=== PATIENT | male | born 1990 | race Caucasian/White ===

== ENCOUNTER → 2016-11-09 | Day surgery (SDC) | payer OTHER ==
[~2016-11-09] VITALS: Ht 185.4 cm; Wt 104.3 kg
[~2016-11-09] MED LIST: ACETAMINOPHEN 500 MG TAB PO PRN; ASPirin 81 mg TAB PO ONE; ASPirin 81 mg TAB PO SCH; ATORVASTATIN 20 MG TAB PO SCH; HYDROcodone-ACET 5/325MG TAB PO PRN; LIDOCAINE 2%HCL (LOCAL ANESTH.) INJ 20ML MDV ONE; LORazepam 0.5 MG TAB PO PRN; METOPROLOL TARTRATE 25 MG TAB PO SCH; MIDAZOLAM HCL 1MG/1ML-2 ML VIAL ONE; MORPHINE SULF INJ 2 MG/ML SYRINGE 1ML IV PRN; NITROGLYCERIN 0.2MG/HR TOPICAL PATCH TD SCH; NITROGLYCERIN 0.4 MG SL TAB SL PRN; PROMETHAZINE HCL 25 MG/ML 1ML IV PRN; SODIUM CHLORIDE 0.9% 1,000 ML IV SCH; TEMAZEPAM 15 MG CAP PO PRN; fentaNYL CITRATE 100 MCG/2 ML VL ONE
[2016-11-09 09:35] VITALS: BP 150/79
[2016-11-09 09:59] LABS: Basophils # (auto) 0 uL; Basophils % (auto) 0.3 % (0.0-2.0); CONDITION Y; Eosinophils # (auto) 0.1 uL; Eosinophils % (auto) 1.9 % (0.0-7.0); Hematocrit 49.8 % (41.0-53.0); Hemoglobin 16.8 g/dL (13.5-17.5); Lymphocytes # (auto) 2.1 uL; Lymphocytes % (auto) 36.1 % (10.0-50.0); Mean Corpuscular Hemoglobin 30.6 pg (28.0-32.0); Mean Corpuscular Hgb Conc. 33.8 g/dL (32.0-36.0); Mean Corpuscular Volume 90.6 fL (80.0-100.0); Mean Platelet Volume 8.1 fL (7.4-10.4); Monocytes # (auto) 0.5 uL; Neutrophils # (auto) 3.1 uL; Neutrophils % (auto) 53.7 % (37.0-80.0); Platelet Count (auto) 292 10^3/uL (140-450); Red Cell Distribution Width 13.6 % (11.6-16.0); White Blood Cell 5.7 10^3/uL (4.4-10.8)
[2016-11-09 10:26] LABS: Albumin 4.6 g/dL (3.4-5.0); Alkaline Phosphatase 79 U/L (45-117); Anion Gap 7 (5-15); Aspartate Aminotransferase 22 U/L (15-37); BUN/Creatinine Ratio 13.7; Bilirubin, Total 0.8 mg/dL (0.2-1.0); Blood Urea Nitrogen 17 mg/dL (7-18); Calcium 9.2 mg/dL (8.5-10.1); Carbon Dioxide 30 mmol/L (21-32); Chloride 101 mmol/L (98-107); GFR African American 89 mL/min; GFR Non-African American 74 mL/min; Glucose 95 mg/dL (74-106); Sodium 138 mmol/L (136-145); Total Protein 8.9 g/dL (6.4-8.2)
[2016-11-09 12:27] LABS: INR 1.02 (0.9-1.15); Prothrombin Time 11.1 sec (9.37-12.3)
== END | disposition home or self-care (01) ==
LOC: ER 08:46 → CATH 10:31
PROVIDERS: ATTEND Internal Medicine
DX: G45.9 Transient cerebral ischemic attack, unspecified (principal); F10.99 Alcohol use, unspecified with unspecified alcohol-induced disorder; F17.200 Nicotine dependence, unspecified, uncomplicated
CPT/HCPCS: 36223; 36226; 36415; 71020; 80053; 82550; 84484; 85025; 85379; 85610; 85652; 86141; 93005; 93458; C1760; C1894; J1644; J2250; J3010; J7030; 99152

== ENCOUNTER 2019-03-12 20:29 | Emergency (ER) | payer OTHER ==
[~2019-03-12] VITALS: Ht 185.4 cm; Wt 107.5 kg
[2019-03-12] MEDS ORDERED: LORazepam 0.5 MG TAB PO ONE (20:45)
[2019-03-12 21:09] LABS: Basophils # (auto) 0 uL; Basophils % (auto) 0.2 % (0.0-2.0); Eosinophils # (auto) 0.1 uL; Hematocrit 43.8 % (41.0-53.0); Hemoglobin 14.9 g/dL (13.5-17.5); Lymphocytes # (auto) 2.3 uL; Lymphocytes % (auto) 23.7 % (10.0-50.0); Mean Corpuscular Hemoglobin 31.5 pg (28.0-32.0); Mean Corpuscular Hgb Conc. 34.1 g/dL (32.0-36.0); Mean Corpuscular Volume 92.3 fL (80.0-100.0); Monocytes # (auto) 0.7 uL; Monocytes % (auto) 7.1 % (0.0-12.0); Neutrophils # (auto) 6.6 uL; Nucleated Red Blood Cells % 0.1 %; Platelet Count (auto) 236 10^3/uL (140-450); Red Blood Cells 4.74 10^6/uL (4.5-5.90); White Blood Cell 9.6 10^3/uL (4.4-10.8)
[2019-03-12 21:25] LABS: Albumin 4.4 g/dL (3.4-5.0); Anion Gap 7 (5-15); Blood Urea Nitrogen 15 mg/dL (7-18); Calcium 8.9 mg/dL (8.5-10.1); Carbon Dioxide 29 mmol/L (21-32); Chloride 104 mmol/L (98-107); Glucose 102 mg/dL (74-106); Magnesium 2.4 mg/dL (1.6-2.6); Potassium 3.4 mmol/L (3.5-5.1); Sodium 140 mmol/L (136-145)
[2019-03-12 21:29] LABS: Alanine Aminotransferase 46 U/L (16-61); Aspartate Aminotransferase 25 U/L (15-37); BUN/Creatinine Ratio 13.8; GFR African American 102 mL/min; GFR Non-African American 84 mL/min
[2019-03-12 21:34] LABS: Alkaline Phosphatase 63 U/L (45-117); Bilirubin, Total 0.4 mg/dL (0.2-1.0); Total Protein 8.3 g/dL (6.4-8.2)
[2019-03-13 00:54] VITALS: BP 140/87
== END 2019-03-13 01:08 | disposition home or self-care (01) ==
LOC: ER 20:29
DX: F41.9 Anxiety disorder, unspecified (principal)
CPT/HCPCS: 36415; 71046; 80053; 83735; 84484; 85025